=== PATIENT | male | born 1995 | race Caucasian/White ===

== ENCOUNTER 2018-12-26 03:50 | Emergency (ER) | payer OTHER ==
[2018-12-26] MEDS: morphine 4 MG/ML VIAL IM (04:26)
== END 2018-12-26 06:00 | disposition home or self-care (01) ==
LOC: FTE 03:50
DX: S20.219A Contusion of unspecified front wall of thorax, initial encounter (principal); I49.9 Cardiac arrhythmia, unspecified; V49.49XA Driver injured in collision with other motor vehicles in traffic accident, initial encounter
CPT/HCPCS: 71046; 93005; 96372; 99284-25